=== PATIENT | male | born 1955 | race Caucasian/White ===

== ENCOUNTER 2019-03-04 09:40 | Day surgery (SDC) | payer BC ==
--- NOTE | 2019-02-28 16:48 | RAD REPORT ---
EXAM DESCRIPTION: RAD - Chest Pa And Lat (2 Views) - 02/28/2019 4:27 pm CLINICAL HISTORY: preop, pending laparoscopic surgery COMPARISON: March 2016 TECHNIQUE: PA and lateral views of the chest were obtained. FINDINGS: The lungs are clear. Heart size is normal and central vasculature is within normal limit s. No pleural effusion or pneumothorax seen. No acute bony finding noted. No aortic abnormality. IMPRESSION: No acute cardiopulmonary process. No significant interval change.
[2019-02-28 17:02] LABS: Basophils % 0.8 % (0-1.3); Hematocrit 44.8 % (39.6-49.0); Lymphocytes % 22.1 % (15.3-44.8); MPV 8.5 fL (7.6-11.3); RBC Red Blood Cell Count 5.28 M/uL (4.33-5.43)
--- NOTE | 2019-03-01 13:49 | EKG ---
Test Date: 2019-02-28 Test Time: 15:49:23 Store Director: [place] MEASUREMENT RESULTS: Intervals: Rate: 51 GA: 210 QRSD: 98 QT: 428 QTc: 394 [place]: P: 71 GA: 210 QRS: -35 T: 34 INTERPRETIVE STATEMENTS: Sinus bradycardia with 1st degree AV block Left axis deviation Abnormal ECG Compared to ECG 10/08/1996 15:16:00 First degree AV block now present Left-axis deviation now present Sinus rhythm no longer present Electronically Signed On 03-01-19 13:46:53 LOG PREPARER by Alfred Balderrama
[2019-03-04] MEDS ORDERED: Ringers Lactate 1,000 ML IV ONE ×2 (10:08→11:20)
[2019-03-04] MEDS ORDERED: FENTANYL CITR 100 MCG/2 ML ONE (10:33)
[2019-03-04] MEDS ORDERED: propofoL 200 MG/20 ML VIAL IV ONE (10:33)
[2019-03-04] MEDS ORDERED: MIDAZOLAM HCL 2 MG/2 ML INJ ONE (10:34)
[2019-03-04] MEDS ORDERED: LIDOCAINE 2% MPF 5 ML VIAL ONE (10:34)
[2019-03-04] MEDS ORDERED: ROCURONIUM 50 MG/5 ML VIAL IV ONE (10:35)
[2019-03-04] MEDS ORDERED: CEFAZOLIN/SWI 1gm 1 GM/10 ML SYR ONE (10:46)
[2019-03-04] MEDS ORDERED: GLYCOPYRROLATE 0.2 MG/ML SYR ONE ×2 (11:02→11:35)
[2019-03-04] MEDS ORDERED: dexAMETHasone 10 MG/ML VIAL ONE (11:06)
[2019-03-04] MEDS ORDERED: ONDANSETRON 4 MG/2 ML VIAL ONE ×3 (11:08→12:02)
[2019-03-04] MEDS ORDERED: KETOROLAC 30 MG/ML INJ ONE (11:35)
[2019-03-04] MEDS ORDERED: NEOSTIGMINE 1 MG/ML -5 ML ONE (11:36)
--- NOTE | 2019-03-04 11:50 | P.BOP ---
Preoperative diagnosis: right inguinal hernia Postoperative diagnosis: same Primary procedure: Laparoscopic repair of right inguinal hernia with mesh Anesthesia: General Complications: None Transferred to: Recovery Room Condition: Good
[2019-03-04] MEDS: HYDROMORPHONE HCL 1 MG/ML INJ ONE ×4 (12:05→12:25)
[2019-03-04] MEDS: FENTANYL CITR 100 MCG/2 ML ONE ×2 (12:30→12:35)
[2019-03-04] MEDS ORDERED: PROMETHAZINE INJ 25 MG/ML AMP ONE (12:37)
[2019-03-04] MEDS ORDERED: HYDROMORPHONE HCL 1 MG/ML INJ ONE (12:37)
[2019-03-04] MEDS ORDERED: HYDROCODONE/APAP 7.5/325 MG TAB ONE (14:22)
[2019-03-04 14:58] VITALS: O2SAT 95
[2019-03-04 16:01] VITALS: BP 159/69; TEMP 98.4
[2019-03-04] MEDS ORDERED: TAMSULOSIN 0.4 MG SR CAP PO ONE (17:00)
--- NOTE | 2019-03-05 00:07 | OP ---
Date of Procedure: 03/04/2019 Surgeon: Rene Louis MD Diagnosis: Right inguinal hernia. Postoperative Diagnosis: Right inguinal hernia. Procedure: Laparoscopy repair of tender right inguinal hernia with mesh. Anesthesia: General plus local. Indication: This is the case of a male, who comes to us with above diagnosis. Fully explained the b enefits, alternatives, and risks of laparoscopic, possible open, repair of right inguinal hernia with mesh which include, but not limited to infection, bleeding, damage to adjacent structures as complic ation, recurrence, chronic pain, chronic numbness, CT, and even . He also understands this may not relieve any symptoms. He might need more than one surgical intervention. He understood, signed a consent. The patient also advised the use of mesh in this area that most likely we are going to us e with pros and cons. All the question were answered to his satisfaction. He did consent for hernia placement. Description Of Procedure: The patient was brought to the operating room, placed in supine position. A time-out was call. Abdominal and groin area were prepped and draped in sterile fashion. Marcaine 0.5% was injected for local anesthetic, followed by sharp incision of skin in the infraumbilical reg ion. Incision was carried down to fascia. We found the anterior rectus sheath on the right side, op ened it, and muscle retracted laterally to expose the posterior rectus sheath. The extraperitoneal s pace was gently developed with the help of the blunt dissection and also space maker balloon tipped c atheter and placed toward the pubic symphysis. A laparoscope was then placed. Balloon was inflated under direct visualization and the extraperitoneal space was created. Balloon was deflated and remov ed. We insufflated the area and then placed a 5 mm trocar and just above the pubis symphysis and ano ther one group home between the first and the second one. The preperitoneal space was developed by expo sing the inferior epigastric vessels keeping it anterior. Fred ligament was dissected laterally to the junction with the iliac veins. The dissection continued inferiorly to the iliopubic tract, avoi ding damage to the femoral branch of the genitofemoral nerve and lateral femoral cutaneous nerve. Th e cord structures were carefully skeletonized. The indirect hernia sac was identified. Some omentum inside reduced into the abdominal cavity. Hernia sac was also reduced into the peritoneal space. A fter the cord structures were skeletonized, making sure there was no other hernia then we proceeded t o roll a 3D mesh on the right side, placed it on the working space. The mesh cover the direct and in direct spaces. The mesh was secured in place. Lateral and superior to the iliopubic tract and infer iorly medial to the Fred ligament using a SorbaFix fixation one on each side. After making sure we have complete hemostasis then under direct visualization while holding the mesh in place and making sure the sac was still reduced and then we deflated the area. The anterior rectus sheath was careful ly closed with #1 Vicryl. We close the area with 3-0 chromic and Steri-Strip. At the end of case, t esticles were within the scrotum. The patient was sent to recovery in stable condition. Sponge coun t and instrument counts were correct. DAVID/MAGO Voice ID: [id number] Report ID: [id number]
--- NOTE | 2019-03-05 00:08 | DS ---
Date of Discharge: 03/04/2019 Diagnosis: Right inguinal hernia. Procedure: Laparoscopic repair of right inguinal hernia with mesh. Disposition: Home. Activity: As tolerated. No heavy lifting. Followup: Follow up in my office in 1 week. Call for appointment [phone]. Keep area dry for 48 ho urs, then may shower. Keep Steri-Strips intact. Medications: Include Vicodin 7.5 q.4 hours p.r.n. pain. DAVID/MAGO Voice ID: [id number] Report ID: [id number]
== END 2019-03-04 17:10 | disposition home or self-care (01) ==
LOC: OR 09:40
PROVIDERS: ATTEND Surgery
PROC: 0YU54JZ Supplement Right Inguinal Region with Synthetic Substitute, Percutaneous Endoscopic Approach (ICD-10-PCS; principal; 2019-03-04 12:15)
DX: K40.90 Unilateral inguinal hernia, without obstruction or gangrene, not specified as recurrent (principal); I10 Essential (primary) hypertension; K21.9 Gastro-esophageal reflux disease without esophagitis; L40.50 Arthropathic psoriasis, unspecified; M19.90 Unspecified osteoarthritis, unspecified site; F41.9 Anxiety disorder, unspecified; Z88.2 Allergy status to sulfonamides; Z82.49 Family history of ischemic heart disease and other diseases of the circulatory system
CPT/HCPCS: 93005; 85025; 80048; 36415; 71046; 49650; J2704; J2550; J2250; J3010 ×2; J1100; J1170 ×3; J2710; J0690; J7120 ×2; J2405 ×2

== ENCOUNTER 2020-12-25 22:06 | Observation (INO) | payer BC, OTHER ==
[2020-12-25 22:46] LABS: Absolute Lymphocytes (CBC) 2.2 K/uL (0.7-4.9); Basophils % 0.3 % (0-1.3); Lymphocytes % 17.2 % (15.3-44.8); MPV 7.6 fL (7.6-11.3)
[2020-12-25 22:48] LABS: Protime INR 1.05
[2020-12-25] MEDS ORDERED: FAMOTIDINE 20 MG/2 ML VIAL IV ONE (23:00)
[2020-12-25] MEDS ORDERED: ONDANSETRON 4 MG/2 ML VIAL ONE (23:00)
[2020-12-25] MEDS ORDERED: MORPHINE 2 MG/ML SYR ONE (23:00)
[2020-12-25 23:11] LABS: BUN Blood Urea Nitrogen 16 mg/dL (7-18); Bicarbonate 29 mmol/L (21-32); Glucose Level 113 mg/dL (74-106); Potassium 3.5 mmol/L (3.5-5.1); Sodium Level 139 mmol/L (136-145)
[2020-12-25 23:12] LABS: ALT/SGPT 43 U/L (12-78); AST/SGOT 29 U/L (15-37); Albumin 4.7 g/dL (3.4-5.0); Alkaline Phosphatase 65 U/L (45-117); Bilirubin Direct 0.2 mg/dL (0-0.2); Bilirubin Total 0.7 mg/dL (0.2-1.0); Lipase 287 U/L (73-393); Magnesium 2.2 mg/dL (1.8-2.4); NT PRO-BNP 61 pg/mL (<125); Protein, Total 8.6 g/dL (6.4-8.2); Troponin (Emerg Dept Use Only) < 0.02 ng/mL (0.0-0.045)
--- NOTE | 2020-12-25 23:38 | EDPHYS ---
Physician Documentation [facility] Name: Francesco Adam Age: 65 yrs Sex: Male : 1955 Arrival Date: 12/25/2020 Time: 22:06 Bed 7 Private MD: ED Physician Feliz Lomas HPI: 12/25 22:42 This 65 yrs old Male presents to ER via Ambulatory with complaints of Chest mh7 Pain > 30 y/o. 22:42 The patient or guardian reports chest pain that is located primarily in the substernal mh7 area. Onset: today. The pain does not radiate. Associated signs and symptoms: Pertinent positives: nausea, shortness of breath, Pertinent negatives: abdominal pain, cough, diaphoresis, dizziness, headache, lower extremity pain, lower extremity swelling, lightheadedness, near syncope, palpitations, recent travel, syncope, vomiting. The chest pain is described as a pressure. Duration: The patient or guardian reports multiple episodes, that are intermittent, that wax and wane, with no pattern. Modifying factors: The symptoms are alleviated by nothing. the symptoms are aggravated by nothing. Severity of pain: At its worst the pain was moderate today, in the emergency department the pain has improved moderately. Historical: - Allergies: 22:31 Sulfa (Sulfonamide Antibiotics); wg - Home Meds: 22:31 alprazolam Oral [Active]; diltiazem HCl Oral [Active]; duloxetine Oral [Active]; wg metoprolol tartrate Oral [Active]; - PMHx: 22:31 Arthritis; Hypertension; Migraines; plaque psoriasis; Anxiety; wg - PSHx: 22:46 inguinal hernia left; rotator cuff left; umbilical hernia; L4-L5 laminectomy; knee df1 repair left; - Immunization history:: Adult Immunizations up to date. - Social history:: Smoking status: Patient denies any tobacco usage or history of. Patient/guardian denies using alcohol. ROS: 22:42 Constitutional: Negative for fever, chills, and weight loss, Eyes: Negative for injury, mh7 pain, redness, and discharge, ENT: Negative for injury, pain, and discharge, Neck: Negative for injury, pain, and swelling, Back: Negative for injury and pain, : Negative for injury, bleeding, discharge, and swelling, MS/Extremity: Negative for injury and deformity, Skin: Negative for injury, rash, and discoloration, Neuro: Negative for headache, weakness, numbness, tingling, and seizure, Psych: Negative for depression, anxiety, suicide ideation, homicidal ideation, and hallucinations, Allergy/Immunology: Negative for hives, rash, and allergies, Endocrine: Negative for neck swelling, polydipsia, polyuria, polyphagia, and marked weight changes, Hematologic/Lymphatic: Negative for swollen nodes, abnormal bleeding, and unusual bruising. Exam: 22:42 Constitutional: This is a well developed, well nourished patient who is awake, alert, mh7 and in no acute distress. Head/Face: Normocephalic, atraumatic. Eyes: Pupils equal round and reactive to light, extra-ocular motions intact. Lids and lashes normal. Conjunctiva and sclera are non-icteric and not injected. Cornea within normal limits. Periorbital areas with no swelling, redness, or edema. Neck: Trachea midline, no thyromegaly or masses palpated, and no cervical lymphadenopathy. Supple, full range of motion without nuchal rigidity, or vertebral point tenderness. No Meningismus. Chest/axilla: Normal chest wall appearance and motion. Nontender with no deformity. No lesions are appreciated. Cardiovascular: Regular rate and rhythm with a normal S1 and S2. No gallops, murmurs, or rubs. Normal PMI, no JVD. No pulse deficits. Respiratory: Lungs have equal breath sounds bilaterally, clear to auscultation and percussion. No rales, rhonchi or wheezes noted. No increased work of breathing, no retractions or nasal flaring. Abdomen/GI: Soft, non-tender, with normal bowel sounds. No distension or tympany. No guarding or rebound. No evidence of tenderness throughout. Back: No spinal tenderness. No costovertebral tenderness. Full range of motion. Skin: Warm, dry with normal turgor. Normal color with no rashes, no lesions, and no evidence of cellulitis. MS/ Extremity: Pulses equal, no cyanosis. Neurovascular intact. Full, normal range of motion. Neuro: Awake and alert, GCS 15, oriented to person, place, time, and situation. Cranial nerves II-XII grossly intact. Motor strength 5/5 in all extremities. Sensory grossly intact. Cerebellar exam normal. Normal gait. Psych: Awake, alert, with orientation to person, place and time. Behavior, mood, and affect are within normal limits. Vital Signs: 22:27 BP 178 / 76; Pulse 72; Resp 18; Temp 98.6; Pulse Ox 100% on R/A; Weight 89.81 kg; wg Height 5 ft. 9 in. (175.26 cm); Pain 7/10; 23:43 BP 169 / 83; Pulse 69; Resp 18; Pulse Ox 97% on R/A; Pain 2/10; df1 22:27 Body Mass Index 29.24 (89.81 kg, 175.26 cm) wg MDM: 23:36 Differential diagnosis: abnormal EKG, acute myocardial infarction, acute pericarditis, mh7 anxiety, coronary artery disease chest wall pain, congestive heart failure costochondritis, esophagitis, gastritis, gastroesophageal reflux disease (GERD), myocarditis, pancreatitis, peptic ulcer disease, pericarditis, pleurisy, pneumonia. HEART Score: History: Highly Suspicious (2), ECG: Non specific repolarization disturbance / LBTB / PM (1), Age: > or = 65 years (2), Risk Factors: 1 or 2 risk factors (1), [Hypertension] Troponin: < or = 1 x Normal Limit (0), Total Score = 6. Data reviewed: vital signs, nurses notes, lab test result(s), cardiac enzymes, CBC, electrolytes, EKG, radiologic studies, plain films. 23:37 The patient was given aspirin in the Emergency Department. Data interpreted: Pulse mh7 oximetry: on room air is 100 %. Interpretation: normal. Counseling: I had a detailed discussion with the patient and/or guardian regarding: the historical points, exam findings, and any diagnostic results supporting the discharge/admit diagnosis, the presence of at least one elevated blood pressure reading (>120/80) during this emergency department visit, lab results, radiology results, the need for further work-up and treatment in the hospital. Response to treatment: the patient's symptoms have markedly improved after treatment. 23:38 Patient medically screened. 7 12/25 22:26 Order name: Basic Metabolic Panel; Complete Time: 23:26 df1 12/25 22:26 Order name: CBC with Diff; Complete Time: 23:26 df1 12/25 22:26 Order name: LFT's; Complete Time: 23:26 df1 12/25 22:26 Order name: Magnesium; Complete Time: 23:26 df1 12/25 22:26 Order name: NT PRO-BNP; Complete Time: 23:26 df1 12/25 22:26 Order name: PT-INR; Complete Time: 23:26 df1 12/25 22:26 Order name: Troponin (emerg Dept Use Only); Complete Time: 23:26 df1 12/25 22:26 Order name: XRAY Chest (1 view) df1 12/25 22:26 Order name: Lipase; Complete Time: 23:26 df1 12/25 23:51 Order name: SARS-COV-2 RT PCR; Complete Time: 00:45 EDMS 12/25 22:26 Order name: EKG; Complete Time: 22:26 df1 12/25 22:26 Order name: Cardiac monitoring; Complete Time: 22:44 df1 12/25 22:26 Order name: EKG - Nurse/Tech; Complete Time: 22:44 df1 12/25 22:26 Order name: IV Saline Lock; Complete Time: 22:44 df1 12/25 22:26 Order name: Labs collected and sent; Complete Time: 22:44 df1 12/25 22:26 Order name: O2 Per Protocol; Complete Time: 22:44 df1 12/25 22:26 Order name: O2 Sat Monitoring; Complete Time: 22:44 df1 12/26 00:09 Order name: CONS Physician Consult; Complete Time: 00:25 EDMS Administered Medications: 22:44 Drug: morphine 2 mg Route: IVP; Site: right antecubital; df1 23:42 Follow up: Response: Pain is decreased df1 22:44 Drug: Zofran (Ondansetron) 4 mg Route: IVP; Site: right antecubital; df1 23:42 Follow up: Response: Nausea is decreased df1 22:44 Drug: Pepcid (famotidine) 20 mg Route: IVP; Site: right antecubital; df1 23:42 Follow up: Response: Marked relief of symptoms; Pain is decreased df1 23:47 Not Given (pt took 325 mg aspirin RN FIELD CASE MANAGER): Aspirin Chewable Tablet 324 mg PO once; 81 mg df1 tablets x 4 Disposition Summary: 12/25/20 23:38 Hospitalization Ordered Hospitalization Status: Observation 7 Provider: Kenan Alves Location: Telemetry/MedSurg (observation) [facility] Condition: Stable mh7 Problem: new mh7 Symptoms: have improved mh7 Bed/Room Type: Standard [facility] Room Assignment: 430(12/26/20 01:31) mw Diagnosis - Chest pain, unspecified [facility] Forms: - Medication Reconciliation Form 7 - SBAR form [facility] Signatures: Dispatcher [employer] EDNV Abbey Molina RN RN mw Holmes, Maurice, MD MD [facility] Ashvin Batista RN Delma Flores df1 Corrections: (The following items were deleted from the chart) 23:51 23:45 CORONAVIRUS+MR.LAB.BRZ ordered. [facility] 12/26 01:31 12/25 23:38 mh7 mw
--- NOTE | 2020-12-25 23:38 | ER ---
Nurse's Notes [facility] Name: Francesco Adam Age: 65 yrs Sex: Male : 1955 Arrival Date: 12/25/2020 Time: 22:06 Bed 7 Private MD: Diagnosis: Chest pain, unspecified Presentation: 12/25 22:27 Chief complaint: Patient states: Pt states he has had intermittent chest pain/pressure, wg mid-sternal, non radiating, since noon today. States he thought it was indigestion and took some bicarb and has been belching a lot. Pt c/o mild SOB, nausea, no vomiting. Pt very anxious during triage. Pt brought immediately back to bed 7 for triage and EKG. Coronavirus screen: Vaccine status: Patient reports receiving the 2nd dose of the covid vaccine. Date April 2020 Client denies travel out of the [place] in the last 14 days. At this time, the client does not indicate any symptoms associated with coronavirus-19. Ebola Screen: Patient negative for fever greater than or equal to 101.5 degrees Fahrenheit, and additional compatible Ebola Virus Disease symptoms Patient denies exposure to infectious person. Patient denies travel to an Ebola-affected area in the 21 days before illness onset. No symptoms or risks identified at this time. Initial Sepsis Screen: Does the patient meet any 2 criteria? No. Patient's initial sepsis screen is negative. Does the patient have a suspected source of infection? No. Patient's initial sepsis screen is negative. Risk Assessment: Do you want to hurt yourself or someone else? Patient reports no desire to harm self or others. Onset of symptoms was December 25, 2020 at 12:00. Care prior to arrival: Medication(s) given: ASA, 325 mg. 22:27 Method Of Arrival: Ambulatory 22:27 Acuity: REMY 3 wg Triage Assessment: 22:31 General: Appears uncomfortable, well groomed, Behavior is cooperative, appropriate for wg age, anxious. Pain: Complains of pain in chest. Cardiovascular: Reports chest pain, nausea, shortness of breath, Denies diaphoresis, lightheadedness, palpitations, syncope, vomiting. Respiratory: No deficits noted. Breath sounds are clear bilaterally. GI: Reports gaseousness, indigestion, nausea. Historical: - Allergies: 22:31 Sulfa (Sulfonamide Antibiotics); wg - Home Meds: 22:31 alprazolam Oral [Active]; diltiazem HCl Oral [Active]; duloxetine Oral [Active]; wg metoprolol tartrate Oral [Active]; - PMHx: 22:31 Arthritis; Hypertension; Migraines; plaque psoriasis; Anxiety; wg - PSHx: 22:46 inguinal hernia left; rotator cuff left; umbilical hernia; L4-L5 laminectomy; knee df1 repair left; - Immunization history:: Adult Immunizations up to date. - Social history:: Smoking status: Patient denies any tobacco usage or history of. Patient/guardian denies using alcohol. Screenin:45 Abuse screen: Denies threats or abuse. Nutritional screening: No deficits noted. df1 Tuberculosis screening: No symptoms or risk factors identified. Fall Risk None identified. Assessment: 22:49 Pain: Pain does not radiate. Pain began gradually. df1 Vital Signs: 22:27 BP 178 / 76; Pulse 72; Resp 18; Temp 98.6; Pulse Ox 100% on R/A; Weight 89.81 kg; wg Height 5 ft. 9 in. (175.26 cm); Pain 7/10; 23:43 BP 169 / 83; Pulse 69; Resp 18; Pulse Ox 97% on R/A; Pain 2/10; df1 22:27 Body Mass Index 29.24 (89.81 kg, 175.26 cm) ED Course: 22:07 Patient arrived in ED. 22:21 Feliz Lomas MD is Attending Physician. [facility] 22:31 Triage completed. 22:31 Arm band placed on right wrist. EKG completed in triage. Results shown to MD. EKG wg completed in triage. Results shown to MD. 22:44 XRAY Chest (1 view) Sent. df1 22:44 Lipase Sent. df1 22:45 Patient has correct armband on for positive identification. Placed in gown. Bed in low df1 position. Call light in reach. Side rails up X 1. marine insurance claim examiner on. Pulse ox on. NIBP on. 22:45 Inserted saline lock: 20 gauge in right antecubital area, using aseptic technique. df1 22:45 No provider procedures requiring assistance completed. df1 22:46 Patient maintains SpO2 saturation greater than 95% on room air. df1 22:55 XRAY Chest (1 view) In Process Unspecified. EDMS 23:14 Delma Flores is Primary Nurse. df1 23:38 Kenan Alves MD is Hospitalizing Provider. [facility] 12/26 01:59 Patient admitted, IV remains in place. df1 Administered Medications: 12/25 22:44 Drug: morphine 2 mg Route: IVP; Site: right antecubital; df1 23:42 Follow up: Response: Pain is decreased df1 22:44 Drug: Zofran (Ondansetron) 4 mg Route: IVP; Site: right antecubital; df1 23:42 Follow up: Response: Nausea is decreased df1 22:44 Drug: Pepcid (famotidine) 20 mg Route: IVP; Site: right antecubital; df1 23:42 Follow up: Response: Marked relief of symptoms; Pain is decreased df1 23:47 Not Given (pt took 325 mg aspirin SPRING INSPECTOR): Aspirin Chewable Tablet 324 mg PO once; 81 mg df1 tablets x 4 Outcome: 23:38 Decision to Hospitalize by Provider. [facility] 12/26 01:59 Admitted to Tele accompanied by nurse. df1 Condition: stable Instructed on the need for admit. 02:00 Patient left the ED. df1 Signatures: Dispatcher [employer] EDMS Feliz Lomas MD MD [facility] Maris Panchal Liam, RN Delma Flores df1 Corrections: (The following items were deleted from the chart) 12/25 23:51 23:47 CORONAVIRUS+MR.LAB.GUILLAUME drawn and sent. df1 EDMS
--- NOTE | 2020-12-26 01:19 | P.HP ---
Certification for Inpatient Patient admitted to: Observation With expected LOS: <2 Midnights Patient will require the following post-hospital care: None Practitioner: I am a practitioner with admitting privileges, knowledge of patient current condition, hospital course, and medical plan of care. Services: Services provided to patient in accordance with Admission requirements found in Title 42 Section 412.3 of the Code of Federal Regulations <Harshal La - Last Filed: 12/26/20 01:13> Patient History Date of Service: 12/26/20 Primary Care Provider: Jayne Reason for admission: chest pain History of Present Illness: Mr. Adam is a 65 yo M with psoriatic arthritis, migraines, anxiety and HTN who presents with 8/10 sternal chest pressure beginning today at 8pm whileat rest. He also reports nausea, vomiting and SOB. He took an aspirin and an antacid with no relief. His BP was much higher than usual today after taking his home medications. His last stress test in 2013 was normal. His father had an [place]. WBC 12.93. Initial troponin and EKG without abnormal findings. - Past Medical/Surgical History -: HTN -: psoriatic arthritis -: migraines -: anxiety -: henria repair -: rotator cuff surgery -: laminectomy -: knee repair - Social History Smoking Status: Never smoker Alcohol use: No CD- Drugs: No Caffeine use: Yes Place of Residence: Home <Harshal La - Last Filed: 12/26/20 01:13> Date of Service: 12/26/20 <Kenan Alves - Last Filed: 12/28/20 02:51> Allergies Sulfa (Sulfonamide Antibiotics) Allergy (Verified 12/26/20 03:00) Hives Home Medications: ALPRAZolam [Alprazolam ER] 1 mg PO BEDTIME 02/28/19 Adalimumab [Humira 40 MG/0.8 ML*] 40 mg SQ EVERY 7TH DAY 02/28/19 Diltiazem HCl [Cartia Xt] 120 mg PO BID 02/28/19 Metoprolol Tartrate [Lopressor*] 25 mg PO BID 02/28/19 Multivitamin [Multivitamins] 1 each PO DAILY 02/28/19 Primidone [Mysoline *] 50 mg PO BID 02/28/19 Sumatriptan [Imitrex*] 50 - 100 mg PO PRN 02/28/19 Ascorbate Calcium [Vitamin C] 500 mg PO DAILY 12/26/20 Aspirin [Ecotrin 81 MG] 81 mg PO DAILY #30 tablet. 12/26/20 Atorvastatin Calcium [Lipitor] 40 mg PO BEDTIME #30 tab 12/26/20 Cholecalciferol (Vitamin D3) [Vitamin D 5,000 IU Cap*] 50 unit PO DAILY 12/26/20 Cyclosporine [Restasis] 1 drop EACH EYE PRN 12/26/20 Doxycycline Hyclate 50 mg PO DAILY 12/26/20 Pantoprazole [Protonix Tab] 40 mg PO DAILY #30 tab 12/26/20 Review of Systems 10-point ROS is otherwise unremarkable General: Unremarkable Eyes: Unremarkable ENT: Unremarkable Respiratory: Shortness of Breath Cardiovascular: Chest Pain Gastrointestinal: Nausea, Vomiting Genitourinary: Unremarkable Musculoskeletal: Unremarkable Integumentary: Unremarkable Neurological: Unremarkable Lymphatics: Unremarkable <Harshal La - Last Filed: 12/26/20 01:13> Physical Examination - Physical Exam General: Alert, In no apparent distress HEENT: Atraumatic, PERRLA, Mucous membr. moist/pink, EOMI, Sclerae nonicteric Neck: Supple, 2+ carotid pulse no bruit, No LAD, Without JVD or thyroid abnormality Respiratory: Clear to auscultation bilaterally, Normal air movement Cardiovascular: Regular rate/rhythm, Normal S1 S2 Gastrointestinal: Normal bowel sounds, No tenderness Musculoskeletal: No tenderness Integumentary: No rashes Neurological: Normal gait, Normal speech, Normal strength at 5/5 x4 extr, Normal tone, Normal affect Lymphatics: No axilla or inguinal lymphadenopathy - Studies Laboratory Data (last 24 hrs) 12/25/20 22:31: PT 12.1, INR 1.05 12/25/20 22:31: WBC 12.90 H, Hgb 17.6, Hct 52.0 H, Plt Count 253 12/25/20 22:31: Sodium 139, Potassium 3.5, BUN 16, Creatinine 1.16, Glucose 113 H, Magnesium 2.2, Total Bilirubin 0.7, AST 29, ALT 43, Alkaline Phosphatase 65, Lipase 287 <Harshal La - Last Filed: 12/26/20 01:13> Assessment and Plan - Problems (Diagnosis) (1) Chest pain Status: Acute Qualifiers: Chest pain type: unspecified Qualified Code(s): R07.9 - Chest pain, unspecified (2) HTN (hypertension) Status: Chronic Qualifiers: Hypertension type: primary hypertension Qualified Code(s): I10 - Essential (primary) hypertension - Plan on tele, trend troponins, repeat ekg cardiology consulted daily ASA, BB, statin, prn morphine and nitroglycerin lipid and thyroid panel pending DVT ppx reconcile and continue home medications Discharge Plan: Home Plan to discharge in: 24 Hours - Advance Directives Does patient have a Living Will: No Does patient have a Durable POA for Healthcare: No - Code Status/Comfort Care Code Status Assessed: Yes (full code ) Critical Care: No Time Spent Managing Pts Care (In Minutes): 70 <Harshal La - Last Filed: 12/26/20 01:13> Date of Service: 12/26/20 Subjective: Agree with HPI as mentioned above Physical Examination: Vitals: Afebrile vital signs are stable Physical exam: Cardiovascular: Within normal limits. Lungs: Within normal limits Abdomen: Within normal limits Neuro: Awake, alert, oriented to person place and time Assessment: 1. Chest pain rule out acute myocardial infarction 2. Hypertension 3. Migraine Plan: 1. Serial troponins and EKG 2. Appreciate Cardiology consultation 3. Echocardiogram and stress test if cardiology is agreeable 4. Anti-platelet therapy, anti coagulation, beta-fuad, statin, and O2 as needed 5. IV morphine for pain 6. Nitro p.r.n. <Kenan Alves - Last Filed: 12/28/20 02:51>
[2020-12-26] MEDS ORDERED: NITROGLYCERIN 0.4 MG/TAB SL PRN (01:34)
[2020-12-26] MEDS ORDERED: HYDRALAZINE HCL 20 MG/ML VIAL IV PRN (01:34)
[2020-12-26] MEDS ORDERED: ACETAMINOPHEN 500 MG TAB PO PRN (01:34)
[2020-12-26] MEDS ORDERED: MORPHINE 2 MG/ML SYR IV PRN (01:34)
[2020-12-26] MEDS ORDERED: ONDANSETRON 4 MG/2 ML VIAL IV PRN (01:34)
[2020-12-26 03:09] VITALS: BMI 29.2
[2020-12-26 03:15] LABS: Urine Appearance CLEAR (Clear); Urine Bilirubin NEGATIVE (Negative); Urine Blood NEGATIVE (Negative); Urine Color YELLOW (Yellow); Urine Glucose NEGATIVE (Negative); Urine Protein NEGATIVE (Negative); Urine Specific Gravity <=1.005 (1.005-1.030); Urine Urobilinogen 0.2 mg/dL (0.2-1.0); Urine pH 7.5 (5.0-7.0)
[2020-12-26 03:24] LABS: Urine Microscopic Reflex NO UMIC
[2020-12-26 04:24] LABS: Absolute Lymphocytes (CBC) 1.9 K/uL (0.7-4.9); Basophils % 0.4 % (0-1.3); Hematocrit 42.9 % (39.6-49.0); Lymphocytes % 17.2 % (15.3-44.8); MPV 7.7 fL (7.6-11.3); RBC Red Blood Cell Count 5.21 M/uL (4.33-5.43)
[2020-12-26 04:43] LABS: Albumin 3.5 g/dL (3.4-5.0); Bilirubin Total 0.5 mg/dL (0.2-1.0); Phosphorus 3.5 mg/dL (2.5-4.9); Potassium 4.7 mmol/L (3.5-5.1); Protein, Total 6.7 g/dL (6.4-8.2); Thyroid Stimulating Hormone 0.708 uIU/mL (0.360-3.740)
[2020-12-26] MEDS ORDERED: METOPROLOL TAR 25 MG TAB PO SCH ×2 (06:00→09:00)
[2020-12-26] MEDS ORDERED: SUMATRIPTAN 50 MG PO PRN (08:45)
[2020-12-26] MEDS ORDERED: PRIMIDONE 50 MG TAB PO SCH (09:00)
[2020-12-26] MEDS ORDERED: DILTIAZEM HCL 120 MG SR CAP PO SCH (09:00)
[2020-12-26] MEDS ORDERED: HOME MED 1 EA UNK (Ascorbate Calcium [Vitamin C] 500 MG Tablet) PO SCH (09:00)
[2020-12-26] MEDS ORDERED: VITAMIN D 5,000 UNIT CAP PO SCH (09:00)
[2020-12-26] MEDS ORDERED: ENOXAPARIN 40 MG/0.4 ML SQ SCH (09:00)
[2020-12-26] MEDS ORDERED: ASPIRIN EC 81 MG TAB PO SCH (09:00)
[2020-12-26] MEDS ORDERED: HOME MED 1 EA UNK (Multivitamin [Multivitamins] Capsule) PO SCH (09:00)
[2020-12-26] MEDS ORDERED: DOXYCYCLINE HYCLATE 50 MG PO SCH (09:00)
[2020-12-26] MEDS ORDERED: ADALIMUMAB SQ SCH (09:00)
[2020-12-26 09:05] VITALS: O2SAT 95
--- NOTE | 2020-12-26 09:17 | RAD REPORT ---
EXAM DESCRIPTION: RAD - Chest Single View - 12/25/2020 10:55 pm CLINICAL HISTORY: CHEST PAIN COMPARISON: Chest Pa And Lat (2 Views) dated 02/28/2019; Chest Single View dated 03/16/2016; CHEST PA AND LAT 2 VIEW dated 12/13/2013 FINDINGS: Lines: None. Lungs: No evidence of edema or pneumonia. Pleural: No significant pleural effusions or pneumothorax. Cardiac: The heart size is within normal limits. Bones: No acute fractures. Other: IMPRESSION: No acute cardiopulmonary disease.
[2020-12-26] MEDS ORDERED: AYR NASAL SALINE DROPS NAS PRN (09:51)
[2020-12-26 12:23] VITALS: BP 149/60; TEMP 97.7
--- NOTE | 2020-12-26 19:08 | CON ---
Date of Consultation: 12/26/2020 Reason For Consultation: Chest pain. History Of Present Illness: This is a middle-aged male, history of hypertension, no other medical hi story, presented with chest pain, retrosternal, started right around lunch yesterday. He has been ta gautam doxycycline for some skin condition and after he took the medicine, started to feel that and the pain became more intense, so he decided to come to the emergency room. He is chest pain free today. Does not report any exertional chest pain. Family History: Father with coronary artery disease at the age of 50. He had his first heart attack when he was 50 years of age, but he was a heavy smoker. Denies any other complaints. No radiation of the pain, not exertion related. Past Medical History: Hypertension. Medications: Refer reconciliation sheet for detailed list. Allergies: NO KNOWN DRUG ALLERGIES. Social History: He does not smoke or drink. Does not use any drugs. Review of Systems: All systems reviewed and they were negative except as mentioned in the HPI. Physical Examination: Vital Signs: Reviewed. Head And Neck: Pupils are equal, reactive to light. Intact eye movements. No JVD. No cervical lym phadenopathy. Neck: Supple. Thyroid is not enlarged. Lungs: Clear to auscultation bilaterally. No rhonchi, rales, or crackles. No accessory muscle use. Heart: Regular rate and rhythm. No extra sounds. Abdomen: Soft, nontender. Bowel sounds positive. No organomegaly. No masses or hernia. No rigidi ty or rebound. Extremities: No edema, clubbing, cyanosis. Intact pulses. Skin: No rashes. Neurologic: Alert, awake, oriented x3. No acute focal deficits appreciated. Investigations: Labs are reviewed. Troponins are negative. EKG without acute specific abnormalitie s. Assessment And Recommendation: 1.Chest pain, atypical. However, risk factors include hypertension, age, and strong family history. From Cardiology standpoint, the patient can be released. I asked him to follow up with me in the o ffice to arrange for exercise stress test and ultrasound. 2.Hypertension. Continue home medications. SR/MODL Voice ID: [id number] Report ID: [id number]
[2020-12-26] MEDS ORDERED: ATORVASTATIN 40 MG TAB PO SCH (21:00)
[2020-12-26] MEDS ORDERED: ALPRAZOLAM 0.5 MG PO SCH (21:00)
[2020-12-26] MEDS ORDERED: ALPRAZOLAM 0.5 MG TABLET PO SCH (21:00)
[2020-12-26] MEDS ORDERED: HOME MED 1 EA UNK (Cyclosporine [Restasis] Droperette) OPTH SCH (21:00)
[2020-12-27] MEDS ORDERED: MULTIVITAMIN TAB PO SCH (09:00)
[2020-12-27] MEDS ORDERED: DOXYCYCLINE 100 MG CAP PO SCH (09:00)
[2020-12-27] MEDS ORDERED: ASCORBIC ACID 500 MG TABLET PO SCH (09:00)
[2020-12-27] MEDS ORDERED: VITAMIN D 5,000 UNIT CAP PO SCH (09:00)
--- NOTE | 2020-12-28 02:53 | P.DS ---
Discharge Date: 12/26/20 Primary Care Provider: Jayne Disposition: ROUTINE DISCHARGE Discharge Condition: GOOD Reason for Admission: chest pain Brief History of Present Illness: Mr. Adam is a 65 yo M with psoriatic arthritis, migraines, anxiety and HTN who presents with 8/10 sternal chest pressure beginning today at 8pm whileat rest. He also reports nausea, vomiting and SOB. He took an aspirin and an antacid with no relief. His BP was much higher than usual today after taking his home medications. His last stress test in 2013 was normal. His father had an [place]. WBC 12.93. Initial troponin and EKG without abnormal findings. Hospital Course: Patient was ruled out for acute coronary syndrome. Patient was seen by Cardiology and decision was to follow up as an outpatient. Patient will follow for outpatient stress testing. Vital Signs/Physical Exam: Temp Pulse Resp BP Pulse Ox 97.7 F 58 18 149/60 H 100 12/26/20 12:00 12/26/20 12:00 12/26/20 12:00 12/26/20 12:00 12/26/20 12:00 General: Alert, In no apparent distress, Oriented x3 Laboratory Data at Discharge: WBC 11.10 K/uL (4.3-10.9) H 12/26/20 03:42 Hgb 14.5 g/dL (13.6-17.9) D 12/26/20 03:42 Hct 42.9 % (39.6-49.0) D 12/26/20 03:42 Plt Count 228 K/uL (152-406) 12/26/20 03:42 PT 12.1 SECONDS (9.5-12.5) 12/25/20 22:31 INR 1.05 12/25/20 22:31 Sodium 141 mmol/L (136-145) 12/26/20 03:42 Potassium 4.7 mmol/L (3.5-5.1) 12/26/20 03:42 BUN 16 mg/dL (7-18) 12/26/20 03:42 Creatinine 1.07 mg/dL (0.55-1.3) 12/26/20 03:42 Glucose 115 mg/dL (74-106) H 12/26/20 03:42 Phosphorus 3.5 mg/dL (2.5-4.9) 12/26/20 03:42 Magnesium 2.0 mg/dL (1.8-2.4) 12/26/20 03:42 Total Bilirubin 0.5 mg/dL (0.2-1.0) 12/26/20 03:42 AST 24 U/L (15-37) 12/26/20 03:42 ALT 35 U/L (12-78) 12/26/20 03:42 Alkaline Phosphatase 50 U/L (45-117) 12/26/20 03:42 Troponin I < 0.02 ng/mL (0.0-0.045) 12/26/20 06:59 Triglycerides 132 mg/dL (<150) 12/26/20 03:42 Cholesterol 169 mg/dL (<200) 12/26/20 03:42 HDL Cholesterol 52 mg/dL (40-60) 12/26/20 03:42 Cholesterol/HDL Ratio 3.25 12/26/20 03:42 Amylase 69 U/L (25-115) 12/26/20 03:42 Lipase 378 U/L (73-393) 12/26/20 03:42 Home Medications: ALPRAZolam [Alprazolam ER] 1 mg PO BEDTIME 02/28/19 Adalimumab [Humira 40 MG/0.8 ML*] 40 mg SQ EVERY 7TH DAY 02/28/19 Diltiazem HCl [Cartia Xt] 120 mg PO BID 02/28/19 Metoprolol Tartrate [Lopressor*] 25 mg PO BID 02/28/19 Multivitamin [Multivitamins] 1 each PO DAILY 02/28/19 Primidone [Mysoline *] 50 mg PO BID 02/28/19 Sumatriptan [Imitrex*] 50 - 100 mg PO PRN 02/28/19 Ascorbate Calcium [Vitamin C] 500 mg PO DAILY 12/26/20 Aspirin [Ecotrin 81 MG] 81 mg PO DAILY #30 tablet 12/26/20 Atorvastatin Calcium [Lipitor] 40 mg PO BEDTIME #30 tab 12/26/20 Cholecalciferol (Vitamin D3) [Vitamin D 5,000 IU Cap*] 50 unit PO DAILY 12/26/20 Cyclosporine [Restasis] 1 drop EACH EYE PRN 12/26/20 Doxycycline Hyclate 50 mg PO DAILY 12/26/20 Pantoprazole [Protonix Tab] 40 mg PO DAILY #30 tab 12/26/20 New Medications: Aspirin [Ecotrin 81 MG] 81 mg PO DAILY #30 tablet. Atorvastatin Calcium [Lipitor] 40 mg PO BEDTIME #30 tab Pantoprazole [Protonix Tab] 40 mg PO DAILY #30 tab Physician Discharge Instructions: OK TO DC IV AND DC HOME FOLLOW-UP WITH CARDIOLOGY IN 1-2 WEEKS FOLLOW-UP WITH PCP IN 1-2 WEEKS RETURN TO THE ER IF SYMPTOMS WORSENS CALL DR. STANTON AT [phone] IF ANY QUESTIONS REGARDING HOSPITAL STAY RETURN TO THE ER IF SYMPTOMS WORSENS OK TO CONTACT NURSING STATION AT [phone] IF ANY MEDICATION OR NURSING CONCERNS Diet: AHA Activity: Fall precautions Followup: Glen Godoy MD [ACTIVE - CAN ADMIT] - 1-2 Weeks (PCP- call to schedule an appointment ) Lawrence Gaytan MD [ACTIVE - CAN ADMIT] - 1-2 Weeks (psych np- call to schedule an appointment for an outpatient stress test ) Time spent managing pt's care (in minutes): 35
== END 2020-12-26 15:55 | disposition home or self-care (01) ==
LOC: ER 22:06 → ERHOLD 12-26 00:04 → 4TH 12-26 01:36
PROVIDERS: ADMIT Hospitalist; ATTEND Hospitalist
DX: R07.89 Other chest pain (principal); I10 Essential (primary) hypertension; L40.50 Arthropathic psoriasis, unspecified; G43.909 Migraine, unspecified, not intractable, without status migrainosus; F41.9 Anxiety disorder, unspecified; Z88.2 Allergy status to sulfonamides; Z20.822 Contact with and (suspected) exposure to COVID-19; Z82.49 Family history of ischemic heart disease and other diseases of the circulatory system
CPT/HCPCS: 93005 ×2; 85025 ×2; 80048; 36415; 82150; 83735 ×2; 84100; 85610; 80061; 80076; 84443; 81003; 84484 ×3; 84439; 83690 ×2; 80053; 83880; 71045; 94760; 96375; 96374; 99285; U0003; J1650; J2270; J2405; G0378 ×2